=== PATIENT | female | born 1975 | race Caucasian/White ===

== ENCOUNTER 2022-03-01 13:38 | Emergency (ER) | payer OTHER ==
[~2022-03-01] VITALS: Ht 180.3 cm; Wt 95.3 kg
[2022-03-01] MEDS ORDERED: GABA-536 PO (14:51)
[2022-03-01] MEDS ORDERED: PRED20TA PO (14:51)
[2022-03-01] MEDS ORDERED: AMOX875T2 PO (14:51)
--- NOTE | 2022-03-01 14:58 | NUR ---
Gave pt RX and d/c instructions, pt verbalized understanding.
== END 2022-03-01 15:10 | disposition home or self-care (01) ==
LOC: ER 13:38
DX: M54.41 Lumbago with sciatica, right side (principal); H92.01 Otalgia, right ear; E11.9 Type 2 diabetes mellitus without complications; Z79.4 Long term (current) use of insulin
CPT/HCPCS: A4663

== ENCOUNTER 2022-07-21 16:42 | Emergency (ER) | payer OTHER ==
[~2022-07-21] VITALS: Ht 180.3 cm; Wt 95.3 kg
[~2022-07-21 16:42] MED LIST: AMOX875T2 PO; GABA-536 PO; PRED20TA PO
[2022-07-21] MEDS ORDERED: METF-442 PO (16:58)
[2022-07-21] MEDS ORDERED: ASPI81TA31 PO (16:58)
[2022-07-21] MEDS ORDERED: HUMALOG SQ (16:58)
--- NOTE | 2022-07-21 17:24 | NUR ---
PT SEEN AND EVALUATED BY DR AMAYA. FOOT XRAY DONE AT BEDSIDE.
--- NOTE | 2022-07-21 17:25 | NUR ---
TEST RESULTS REVIEWED BY MD WITH PATIRNT. CRUTCH TRAINING DONE W/ SATISFACTORY RETURN DEMO. DISCHARGE INSTRUCTIONS RENDERED PER MD ORDERS.
[2022-07-21 17:26] VITALS: BP 137/81
== END 2022-07-21 17:27 | disposition home or self-care (01) ==
LOC: ER 16:42
DX: M79.672 Pain in left foot (principal); E11.9 Type 2 diabetes mellitus without complications; Z79.4 Long term (current) use of insulin; Z87.74 Personal history of (corrected) congenital malformations of heart and circulatory system; Z88.5 Allergy status to narcotic agent; Z79.84 Long term (current) use of oral hypoglycemic drugs; Z79.82 Long term (current) use of aspirin
CPT/HCPCS: 73630; A4663

== ENCOUNTER 2024-12-18 12:37 | Emergency (ER) | payer OTHER ==
[~2024-12-18] VITALS: Ht 180.3 cm; Wt 97.5 kg
[~2024-12-18 12:37] MED LIST changes: -AMOX875T2 PO; +ASPI81TA31 PO; +HUMALOG SQ; +METF-442 PO
[2024-12-18] MEDS ORDERED: HYDROCODONE/APAP 10-325 MG TABLET ONE (13:00)
[2024-12-18] MEDS ORDERED: FAMC500T3 PO (13:09)
[2024-12-18] MEDS ORDERED: HYDR-3980 PO (13:09)
[2024-12-18] MEDS: HYDROCODONE/APAP 10-325 MG TABLET PO ONE (13:10)
[2024-12-18 13:19] VITALS: BP 136/93; O2SAT 99
== END 2024-12-18 13:20 | disposition home or self-care (01) ==
LOC: ER 12:37
DX: B02.9 Zoster without complications (principal); E11.9 Type 2 diabetes mellitus without complications; Z79.4 Long term (current) use of insulin; Z79.52 Long term (current) use of systemic steroids; Z79.82 Long term (current) use of aspirin; Z79.84 Long term (current) use of oral hypoglycemic drugs; Z87.74 Personal history of (corrected) congenital malformations of heart and circulatory system; Z95.0 Presence of cardiac pacemaker; Z88.5 Allergy status to narcotic agent; Z88.7 Allergy status to serum and vaccine
CPT/HCPCS: A4606; A4663

== ENCOUNTER 2025-02-13 15:00 | Emergency (ER) | payer OTHER ==
[~2025-02-13] VITALS: Ht 180.3 cm; Wt 100.2 kg
[~2025-02-13 15:00] MED LIST changes: +FAMC500T3 PO; +HYDR-3980 PO
[2025-02-13] MEDS ORDERED: diphenhydrAMINE 50 MG/1 ML VIAL ONE (15:38)
[2025-02-13] MEDS ORDERED: ACYCLOVIR 200 MG CAPSULE ONE (15:39)
[2025-02-13] MEDS ORDERED: KETOROLAC TROMETHAMINE 30 MG INJ ONE (15:39)
[2025-02-13] MEDS ORDERED: METOCLOPRAMIDE HCL 10 MG/2 ML VIAL ONE (15:39)
[2025-02-13 15:53] LABS: BASOPHILS % (AUTO) 0.2 % (0.0-2.0); DIFFERENTIAL COMMENT 0; EOSINOPHILS # (AUTO) 0.1 K/uL (0.0-0.7); EOSINOPHILS % (AUTO) 1.1 % (0.0-7.0); HEMATOCRIT 34.8 % (31.2-41.9); HEMOGLOBIN 11.3 g/dL (10.9-14.3); LYMPHOCYTES # (AUTO) 3.9 K/uL (0.8-4.8); LYMPHOCYTES % (AUTO) 39.6 % (20.5-51.5); MEAN CORPUSCULAR HEMOGLOBIN 24.8 uug (24.7-32.8); MEAN CORPUSCULAR HGB CONC 33 g/dL (32.3-35.6); MEAN CORPUSCULAR VOLUME 76.3 fL (75.5-95.3); MONOCYTES # (AUTO) 0.4 K/uL (0.1-1.30); MONOCYTES % (AUTO) 4.4 % (0.0-11.0); NEUTROPHILS # (AUTO) 5.3 K/uL (1.8-8.9); NEUTROPHILS % (AUTO) 54.7 % (38.5-71.5); PLATELET COUNT (AUTO) 328 K/uL (179-408); RED BLOOD CELL COUNT(AUTO) 4.56 MIL/uL (3.63-4.92); RED CELL DISTRIBUTION WIDTH 20.5 % (12.3-17.7); WHITE BLOOD COUNT (AUTO) 9.8 K/uL (3.8-11.8)
[2025-02-13] MEDS: diphenhydrAMINE 50 MG/1 ML VIAL IV ONE (15:55)
[2025-02-13] MEDS: IV NS 1000 ML 1,000 ML IV ONE (15:55)
[2025-02-13] MEDS: METOCLOPRAMIDE HCL 10 MG/2 ML VIAL IV ONE (15:55)
[2025-02-13] MEDS: KETOROLAC TROMETHAMINE 30 MG INJ IVP ONE (15:56)
[2025-02-13] MEDS: ACYCLOVIR 400 MG TABLET PO ONE (15:56)
[2025-02-13 16:04] LABS: CALCIUM 9.3 mg/dL (8.5-10.1); CARBON DIOXIDE 29 mmol/L (21-32); CHLORIDE 104 mmol/L (98-107); CREATININE 0.4 mg/dL (0.6-1.3); POTASSIUM 3.3 mmol/L (3.5-5.1); SODIUM SERUM 143 mmol/L (136-145); UREA NITROGEN, BLOOD 7 mg/dL (7-18)
[2025-02-13 16:06] LABS: GLUCOSE 49 mg/dL (74-106)
[2025-02-13] MEDS ORDERED: POTASSIUM BICARBONATE/CIT AC 25 MEQ TABLET.EFF ONE (16:12)
[2025-02-13] MEDS: POTASSIUM BICARBONATE/CIT AC 25 MEQ TABLET.EFF PO ONE (16:14)
[2025-02-13 18:49] VITALS: BP 138/82; O2SAT 100
== END 2025-02-13 18:49 | disposition home or self-care (01) ==
LOC: ER 15:00
DX: E11.649 Type 2 diabetes mellitus with hypoglycemia without coma (principal); B02.9 Zoster without complications; R11.0 Nausea; R51.9 Headache, unspecified; Z79.4 Long term (current) use of insulin; Z79.52 Long term (current) use of systemic steroids; Z79.624 Long term (current) use of inhibitors of nucleotide synthesis; Z79.82 Long term (current) use of aspirin; Z79.84 Long term (current) use of oral hypoglycemic drugs; Z87.74 Personal history of (corrected) congenital malformations of heart and circulatory system; Z88.5 Allergy status to narcotic agent; Z88.7 Allergy status to serum and vaccine; Z87.39 Personal history of other diseases of the musculoskeletal system and connective tissue
CPT/HCPCS: 99284; 96374; 96375; 96361; 80048; 85025; 36415; J1885; J1200; J2765; J7040

== ENCOUNTER 2025-04-10 10:47 | Emergency (ER) | payer OTHER ==
[~2025-04-10] VITALS: Ht 167.6 cm; Wt 74.8 kg
[2025-04-10] MEDS ORDERED: VALACYCLOVIR HCL 500 MG TABLET ONE (12:09)
[2025-04-10] MEDS ORDERED: predniSONE 50 MG TABLET ONE (12:09)
[2025-04-10] MEDS ORDERED: HYDR-3980 PO (12:12)
[2025-04-10] MEDS: predniSONE 50 MG TABLET PO ONE (12:12)
[2025-04-10] MEDS ORDERED: VALA10002 PO (12:12)
[2025-04-10] MEDS ORDERED: PRED50TA PO (12:12)
[2025-04-10] MEDS: VALACYCLOVIR HCL 500 MG TABLET PO ONE (12:12)
[2025-04-10 12:23] VITALS: BP 127/85; O2SAT 99
== END 2025-04-10 12:23 | disposition home or self-care (01) ==
LOC: ER 10:47
DX: B02.9 Zoster without complications (principal); E11.9 Type 2 diabetes mellitus without complications; Z79.4 Long term (current) use of insulin; Z79.52 Long term (current) use of systemic steroids; Z79.624 Long term (current) use of inhibitors of nucleotide synthesis; Z79.82 Long term (current) use of aspirin; Z79.84 Long term (current) use of oral hypoglycemic drugs; Z87.74 Personal history of (corrected) congenital malformations of heart and circulatory system; Z88.5 Allergy status to narcotic agent; Z88.7 Allergy status to serum and vaccine
CPT/HCPCS: 99283; J7512; A4606; A4663

== ENCOUNTER 2025-07-13 13:08 | Emergency (ER) | payer OTHER ==
[~2025-07-13] VITALS: Ht 180.3 cm; Wt 98.9 kg
[~2025-07-13 13:08] MED LIST changes: +PRED50TA PO; +VALA10002 PO
[2025-07-13 13:11] VITALS: BP 124/67; O2SAT 99
== END 2025-07-13 14:20 | disposition left against medical advice (07) ==
LOC: ER 13:08
DX: M79.606 Pain in leg, unspecified (principal); E11.9 Type 2 diabetes mellitus without complications; Z79.4 Long term (current) use of insulin; Z79.52 Long term (current) use of systemic steroids; Z79.624 Long term (current) use of inhibitors of nucleotide synthesis; Z79.82 Long term (current) use of aspirin; Z79.84 Long term (current) use of oral hypoglycemic drugs; Z87.74 Personal history of (corrected) congenital malformations of heart and circulatory system; Z88.5 Allergy status to narcotic agent; Z88.7 Allergy status to serum and vaccine; Z86.79 Personal history of other diseases of the circulatory system; Z87.39 Personal history of other diseases of the musculoskeletal system and connective tissue; Z53.21 Procedure and treatment not carried out due to patient leaving prior to being seen by health care provider
CPT/HCPCS: A4606; A4663

== ENCOUNTER 2025-08-20 12:03 | Emergency (ER) | payer OTHER ==
[~2025-08-20] VITALS: Ht 180.3 cm; Wt 102.5 kg
[2025-08-20 12:06] VITALS: BP 121/72
[2025-08-20] MEDS ORDERED: OXYC-128 PO (13:31)
[2025-08-20] MEDS ORDERED: OFLO5DRO5 RIGHT EAR (13:31)
[2025-08-20 13:42] VITALS: BP 121/72; TEMP 98.4; O2SAT 99
== END 2025-08-20 13:42 | disposition home or self-care (01) ==
LOC: ER 12:03
DX: H60.91 Unspecified otitis externa, right ear (principal); E11.9 Type 2 diabetes mellitus without complications; I51.9 Heart disease, unspecified; Z79.4 Long term (current) use of insulin; Z79.52 Long term (current) use of systemic steroids; Z79.624 Long term (current) use of inhibitors of nucleotide synthesis; Z79.82 Long term (current) use of aspirin; Z79.84 Long term (current) use of oral hypoglycemic drugs; Z87.74 Personal history of (corrected) congenital malformations of heart and circulatory system; Z88.5 Allergy status to narcotic agent; Z88.7 Allergy status to serum and vaccine
CPT/HCPCS: A4606; A4663